=== PATIENT | male | born 1985 | race Caucasian/White ===

== ENCOUNTER 2024-07-14 04:13 | Day surgery (SDC) | payer OTHER ==
[~2024-07-14] VITALS: Ht 177.8 cm; Wt 86.4 kg
[2024-07-14] VITALS (205 sets, daily range): BP systolic 94–162; BP diastolic 70–113
[~2024-07-14 04:13] MED LIST: SODIUM CHLORIDE 0.9% 1,000 ML IV PRN
[2024-07-14] MEDS ORDERED: PANTOPRAZOLE SODIUM Sesquihydr 40 MG/TAB PO PRN (07:30)
[2024-07-14] MEDS ORDERED: LACTATED RINGER'S 1,000 ML IV PRN ×2 (07:30→09:20)
[2024-07-14] MEDS ORDERED: CYANOCOBALAMIN 500 MCG/TAB ( B12) PO PRN (07:30)
[2024-07-14] MEDS ORDERED: FAMOTIDINE 20 MG/TAB PO PRN (07:30)
[2024-07-14] MEDS ORDERED: SCOPOLAMINE 1.5 MG DIS TD PRN (07:30)
[2024-07-14] MEDS ORDERED: cloNIDine HCL 0.1 MG/TAB PO PRN (07:30)
[2024-07-14] MEDS ORDERED: ALBUTEROL SULFATE 2.5 MG VIAL IN PRN (07:30)
[2024-07-14] MEDS ORDERED: diazePAM 5 MG/TAB PO PRN ×2 (07:30→08:30)
[2024-07-14] MEDS ORDERED: DEXMEDETOMIDINE HCL IN SODIUM 100 ML IV SCH (07:35)
[2024-07-14] MEDS ORDERED: ASCORBIC ACID 4,000 MG in SODIUM CHLORIDE 0.9% 1,000 ML IV SCH (08:00)
[2024-07-14 08:47] LABS: BASO% 0.7 % (0-3); HEMATOCRIT 44.8 % (39.0-50.0); HEMOGLOBIN 15.4 g/dl (14.0-18.0); IMMATURE GRANULOCYTES 0.1 % (0.0-5.0); LYMPH% 21.4 % (15-41); MEAN CELL VOLUME 81.5 fL CALC (80.0-100.0); MEAN CORPUSCULAR HGB CONC 34.4 g/dL CAL (32.0-36.0); NEUT# 4.89 thou/uL (1.82-7.42); NEUT% 66.8 % (42-76); RED BLOOD COUNT 5.5 mill/uL (4.70-6.10); RED CELL DISTRI WIDTH 13.1 % (11.5-15.5)
[2024-07-14 08:56] LABS: ALBUMIN 4.1 g/dL (3.2-5.0); BILIRUBIN, TOTAL 0.8 mg/dL (0.2-1.3); CREATININE 0.8 mg/dL (0.7-1.3); POTASSIUM 4.5 mmol/l (3.5-5.1); TOTAL PROTEIN 7.5 g/dL (6.3-8.2)
[2024-07-14] MEDS ORDERED: ROCURONIUM BROMIDE 10 MG/ML 5 ML VIAL IV PRN (09:20)
[2024-07-14] MEDS ORDERED: MAGNESIUM SULFATE HEPTAHYDRATE 100 ML IV PRN (09:20)
[2024-07-14] MEDS ORDERED: STERILE WATER FOR IRRIGATION 1,000 ML BTL IR PRN (09:20)
[2024-07-14] MEDS ORDERED: LIDOCAINE HCL 1% (10MG/ML) 100 MG/10 ML MDV IV PRN (09:20)
[2024-07-14] MEDS ORDERED: SODIUM CHLORIDE 0.9% 1,000 ML IV PRN ×2 (09:20→13:20)
[2024-07-14] MEDS ORDERED: ONDANSETRON HCl 4 MG/2 ML SDV IV PRN ×3 (09:20→19:00)
[2024-07-14] MEDS ORDERED: NALTREXONE HCL 50 MG/TAB VT PRN (09:20)
[2024-07-14] MEDS ORDERED: LIDOCAINE HCL 1% (10MG/ML) 100 MG/10 ML MDV VT PRN ×2 (09:20)
[2024-07-14] MEDS ORDERED: PROPOFOL 10 MG/ML 100ML VIAL IV PRN (09:20)
[2024-07-14] MEDS ORDERED: SUCCINYLCHOLINE CHLORIDE 20 MG/ML 10ML VIAL IV PRN (09:20)
[2024-07-14] MEDS ORDERED: cloNIDine HCL 0.1 MG/TAB VT PRN (09:20)
[2024-07-14] MEDS ORDERED: PROPOFOL 100 ML IV PRN (09:20)
[2024-07-14] MEDS ORDERED: cloNIDine HYDROCHLORIDE 100 MCG/ML 10 ML INJ IV PRN (09:20)
[2024-07-14] MEDS ORDERED: DiphenhydrAMINE HCL 50 MG/ML SDV IV PRN (09:20)
[2024-07-14] MEDS ORDERED: OCTREOTIDE ACETATE 100 MCG/VIAL SDV SC PRN (09:20)
[2024-07-14] MEDS ORDERED: MIDAZOLAM HCL 2 MG/2 ML VIAL IV PRN ×3 (09:20→13:25)
[2024-07-14] MEDS ORDERED: THIAMINE HCL 100 MG/ML 2ML VIAL IV PRN (09:20)
[2024-07-14] MEDS ORDERED: POTASSIUM CHLORIDE 20 MEQ/100 ML BAG IV PRN (09:20)
[2024-07-14] MEDS ORDERED: diazePAM 5 MG/TAB VT PRN (09:20)
[2024-07-14] MEDS ORDERED: NALTREXONE50 MG PO (15:13)
[2024-07-14] MEDS ORDERED: KLONOPIN2 MG PO (15:14)
[2024-07-14] MEDS ORDERED: CLONIDINE0.1 MG PO (15:14)
[2024-07-14] MEDS ORDERED: ACETAMINOPHEN 500 MG TAB PO PRN (19:00)
[2024-07-14] MEDS ORDERED: ACETAMINOPHEN 1,000 MG/100 ML VIAL IV PRN (19:00)
[2024-07-14] MEDS ORDERED: HALOPERIDOL LACTATE 5 MG/ML SDV IV PRN ×2 (19:00→20:30)
[2024-07-14] MEDS ORDERED: KETOROLAC TROMETHAMINE 30 MG/ML SDV IV PRN (19:00)
[2024-07-14] MEDS ORDERED: PROMETHAZINE HCL 12.5 MG in SODIUM CHLORIDE 0.9% 50 ML IV PRN (19:00)
[2024-07-14] MEDS ORDERED: PROMETHAZINE HCL 25 MG in SODIUM CHLORIDE 0.9% 50 ML IV PRN (19:00)
[2024-07-14] MEDS ORDERED: diazePAM 5 MG/TAB PO SCH (20:26)
[2024-07-14] MEDS ORDERED: PATIENT' OWN MED CONTROLLED 1 EA DOSE IV PRN (21:00)
[2024-07-14] MEDS ORDERED: cloNIDine HCL 0.1 MG/TAB PO SCH (23:00)
[2024-07-14] MEDS ORDERED: clonazePAM 1 MG/TAB PO PRN (23:00)
[2024-07-15 02:12] VITALS: BP 135/79
[2024-07-15] MEDS ORDERED: clonazePAM 1 MG/TAB PO PRN ×2 (04:00→08:00)
[2024-07-15] MEDS ORDERED: NALTREXONE HCL 50 MG/TAB PO SCH (04:00)
[2024-07-15] MEDS ORDERED: cloNIDine HCL 0.1 MG/TAB PO PRN (04:00)
[2024-07-15 05:03] LABS: BASO% 0.1 % (0-3); HEMATOCRIT 42.1 % (39.0-50.0); HEMOGLOBIN 14.8 g/dl (14.0-18.0); IMMATURE GRANULOCYTES 0.1 % (0.0-5.0); LYMPH% 8.4 % (15-41); MEAN CELL VOLUME 81.1 fL CALC (80.0-100.0); MEAN CORPUSCULAR HGB 28.5 pG CALC (26.0-32.0); MEAN CORPUSCULAR HGB CONC 35.2 g/dL CAL (32.0-36.0); MONO% 2.1 % (2-13); NEUT# 7.22 thou/uL (1.82-7.42); NEUT% 89.3 % (42-76); RED BLOOD COUNT 5.19 mill/uL (4.70-6.10)
[2024-07-15 05:17] LABS: ALBUMIN 3.6 g/dL (3.2-5.0); BILIRUBIN, TOTAL 0.8 mg/dL (0.2-1.3); CREATININE 0.8 mg/dL (0.7-1.3); MAGNESIUM 1.9 mg/dL (1.6-2.3); POTASSIUM 3.9 mmol/l (3.5-5.1); TOTAL PROTEIN 6.6 g/dL (6.3-8.2)
[2024-07-15 06:05] VITALS: BP 126/68
[2024-07-15 07:57] VITALS: BP 126/68
[2024-07-15] MEDS ORDERED: PANTOPRAZOLE SODIUM Sesquihydr 40 MG/TAB PO SCH (08:00)
[2024-07-15] MEDS ORDERED: ACETAMINOPHEN 325 MG/TAB PO SCH (08:00)
[2024-07-15] MEDS ORDERED: cloNIDine HCL 0.1 MG/TAB PO SCH (08:00)
[2024-07-15] MEDS ORDERED: MAGNESIUM OXIDE 400 MG/TAB PO PRN (09:00)
[2024-07-15] MEDS ORDERED: Cholecalciferol 2,000 UNIT/TAB PO PRN (09:00)
[2024-07-15] MEDS ORDERED: ACETAMINOPHEN 500 MG TAB PO PRN (09:00)
== END 2024-07-15 13:46 | disposition left against medical advice (07) | DRG 894 ==
LOC: MS2 04:13 → ANR 04:13 → MS2 04:19 → ANR 09:00 → MS2 16:19 → ANR 07-15 13:46
PROVIDERS: ATTEND Anesthesiology Critical Care Medicine
DX: F11.20 Opioid dependence, uncomplicated (principal)
CPT/HCPCS: J0735; J1100; J1200; J1630; J2354; J2405; J2704; J3475; J3480; J3490